=== PATIENT | male | born 2000 | race Caucasian/White ===

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

== ENCOUNTER 2018-11-29 18:51 | Emergency (ER) | payer SELFPAY ==
[2018-11-29] MEDS ORDERED: Proparacaine 0.5% Opth 15 ML BOT ONE (19:22)
[2018-11-29] MEDS ORDERED: Fluorescein Opthalmic Strip ONE (19:22)
== END 2018-11-29 19:58 | disposition home or self-care (01) ==
LOC: ERS 18:51
DX: T15.01XA Foreign body in cornea, right eye, initial encounter (principal); F17.210 Nicotine dependence, cigarettes, uncomplicated; X58.XXXA Exposure to other specified factors, initial encounter
CPT/HCPCS: 99283

== ENCOUNTER 2023-12-14 17:41 | Emergency (ER) | payer SELFPAY ==
[2023-12-14] MEDS ORDERED: HYDROcodone/Acetaminophen 10/325 mg Tablet ONE (19:05)
[2023-12-14 19:16] LABS: #Basophils 0.03 10x3/uL (0.0-0.2); %Basophils 0.2 % (0.0-1.0); %Eosinophils 1.1 % (0.0-10.0); %Lymphocytes 21.6 % (21.0-51.0); %Monocytes 10.5 % (0.0-10.0); %Neutrophils 66.2 % (42.0-75.0); Hematocrit 42.5 % (42.0-52.0); Hemoglobin 14.1 g/dL (14.0-18.0); Mean Corpuscular HGB CONC 33.2 g/dL (32.0-36.0); Mean Corpuscular Volume 90.4 fL (78.0-98.0); Mean Platelet Volume 9.6 fL (7.4-10.4); Platelet Count 263 10x3/uL (130-400); RBC Distribution Width 12.1 % (11.5-14.5)
[2023-12-14 19:32] LABS: ALT (SGPT) 16 U/L (8-55); AST (SGOT) 15 U/L (5-34); Albumin 3.8 g/dL (3.5-5.0); Alkaline Phosphatase 83 U/L (40-110); Anion Gap 15 mmol/L (10-20); BUN (Urea Nitrogen) 11 mg/dL (8.9-20.6); Bilirubin, Total 0.4 mg/dL (0.2-1.2); Calc. Creatinine Clearance 0 mL/min (70-130); Calcium 10.1 mg/dL (7.8-10.44); Carbon Dioxide 26 mmol/L (22-29); Chloride 102 mmol/L (98-107); Estimated GFR 115; Globulin 3.7 g/dL (2.4-3.5); Glucose 82 mg/dL (70-105); Potassium 4.3 mmol/L (3.5-5.1); Protein, Total 7.5 g/dL (6.0-8.3); Sodium 139 mmol/L (136-145)
[2023-12-14] MEDS ORDERED: Ondansetron PF 4 MG/2 ML Vial ONE (20:44)
[2023-12-14] MEDS ORDERED: Ampicillin/Sulbactam 3 GM VIAL ONE (20:47)
[2023-12-14] MEDS ORDERED: Sodium Chloride 0.9% 100 ML ONE (20:47)
== END 2023-12-14 21:54 | disposition short-term general hospital (02) ==
LOC: ERS 17:41
DX: K12.2 Cellulitis and abscess of mouth (principal); Z55.6 Problems related to health literacy
CPT/HCPCS: 36415; 70491; 80053; 83605; 85025; 87040; 96365; 96375; J0295; J2405; J3490